=== PATIENT | female | born 1960 | race Asian ===

== ENCOUNTER 2020-07-03 10:34 | Emergency (ER) | payer BC, SELFPAY ==
[~2020-07-03] VITALS: Ht 152.4 cm; Wt 56.7 kg
[2020-07-03 10:50] VITALS: BP_SYST 141
[2020-07-03 11:20] VITALS: BP_SYST 141
== END 2020-07-03 11:20 | disposition home or self-care (01) ==
LOC: SED 10:34
DX: J20.9 Acute bronchitis, unspecified (principal); Z20.828 Contact with and (suspected) exposure to other viral communicable diseases
CPT/HCPCS: 71045; 93005; 99285; C9803; U0003